=== PATIENT | female | born 1980 | race Caucasian/White ===

== ENCOUNTER 2023-10-26 19:08 | Emergency (ER) | payer BC ==
[~2023-10-26] VITALS: Ht 167.6 cm; Wt 54.0 kg
[2023-10-26 19:14] VITALS: BP 143/84; PULSE 85; RESP 20; TEMP 97.7
[2023-10-26 19:55] LABS: BASOPHILS % (AUTO) 1.3 % (0.0-2.0); EOSINOPHILS % (AUTO) 4.4 % (1.0-6.0); HEMATOCRIT 41.1 % (36-46); HEMOGLOBIN 13.9 g/dL (12.0-16.0); LYMPHOCYTES # (AUTO) 3.2 K/uL (1.0-4.8); LYMPHOCYTES % (AUTO) 32.9 % (22.0-44.0); MEAN CORPUSCULAR HEMOGLOBIN 31.4 pg (26.0-34.0); MEAN CORPUSCULAR HGB CONC 33.8 G/dL (31.0-37.0); MEAN CORPUSCULAR VOLUME 93 fL (80-100); MONOCYTES # (AUTO) 0.6 K/uL (0.1-1.0); MONOCYTES % (AUTO) 5.8 % (2.0-9.0); NEUTROPHILS # (AUTO) 5.4 K/uL (1.8-7.7); NEUTROPHILS % (AUTO) 55.6 % (40.0-70.0); PLATELET COUNT (AUTO) 362 K/uL (150-450); RED BLOOD CELL COUNT(AUTO) 4.43 MIL/uL (4.00-5.20); RED CELL DISTRIBUTION WIDTH 13.2 % (11.5-14.5); WHITE BLOOD COUNT (AUTO) 9.7 K/uL (4.5-11.0)
[2023-10-26 20:05] LABS: ANION GAP 12 mmol/L (8-16); CALCIUM, TOTAL 9.8 mg/dL (8.8-10.5); CARBON DIOXIDE 25 mmol/L (22-29); CHLORIDE 103 mmol/L (98-107); CREATININE 0.79 mg/dL (0.60-1.30); GLOMERULAR FILTR. RATE CALC > 60 mL/min (>60); GLUCOSE,RANDOM 83 mg/dL (70-110); POTASSIUM 4.2 mmol/L (3.5-5.1); SODIUM SERUM 140 mmol/L (136-145); UREA NITROGEN, BLOOD 15 mg/dL (7-18)
[2023-10-26 20:11] LABS: ALANINE AMINOTRANSFERASE 14 U/L (12-78); ALBUMIN 4.9 g/dL (3.4-5.0); ALKALINE PHOSPHATASE 55 U/L (46-116); ASPARTATE AMINOTRANSFERASE 11 U/L (15-37); BILIRUBIN,TOTAL 0.3 mg/dL (0.1-1.0); TOTAL PROTEIN, SERUM 8.4 g/dL (6.4-8.2)
[2023-10-26 20:13] LABS: TROPONIN I-HIGH SENSITIVITY 4 ng/L (<51)
[2023-10-26] MEDS ORDERED: IOHEXOL 350 MG/ML 100 ML VIAL ONE (22:52)
[2023-10-26] MEDS ORDERED: SODIUM CHLORIDE 0.9% 100 ML ONE (22:52)
== END 2023-10-27 00:29 | disposition home or self-care (01) ==
LOC: EMS 19:09
DX: R07.9 Chest pain, unspecified (principal); C50.912 Malignant neoplasm of unspecified site of left female breast; Z88.0 Allergy status to penicillin
CPT/HCPCS: 99285; 71275; 71045; 80053; 84484; 84703; 85025; 36415; 93005; Q9967; J7050